=== PATIENT | female | born 1975 | race Hispanic/Latino ===

== ENCOUNTER 2018-11-04 06:23 | Day surgery (SDC) | payer MEDICAID ==
[2018-11-03 11:54] LABS: APPEARANCE,URINE Clear (CLEAR); BILIRUBIN,URINE Negative (NEGATIVE); COLOR,URINE Yellow (YELLOW); GLUCOSE, URINE (UA) >=1000 mg/dL (NEGATIVE); KETONES,URINE Negative (NEGATIVE); LEUKOCYTE ESTERASE ,URINE Negative (NEGATIVE); NITRATE,URINE Negative (NEGATIVE); OCCULT BLOOD,URINE Nonhemolyzed Trace (NEGATIVE); PH,URINE 5.5 (5.0-8.0); PROTEIN,URINE POS 2+ mg/dL (NEGATIVE)
[2018-11-03 12:05] VITALS: BP 138/78
[2018-11-03 12:09] LABS: ALBUMIN 2.7 g/dL (3.5-5.0); BILIRUBIN,TOTAL 0.3 mg/dL (0.2-1.0); CREATININE 0.7 mg/dL (0.5-1.5); POTASSIUM 3.9 mmol/L (3.5-5.1); TOTAL PROTEIN, SERUM 6.5 g/dL (6.0-8.3)
[2018-11-03 12:25] LABS: BACTERIA,URINE Rare /HPF (None Seen); SQUAMOUS EPITHELIAL CELL,UR Few /HPF (0-2); WBC,URINE 0-1 /HPF (0-1)
[2018-11-04] VITALS (14 sets, daily range): BP systolic 104–140; BP diastolic 41–74
[~2018-11-04] VITALS: Ht 156.2 cm; Wt 101.2 kg
[~2018-11-04 06:23] MED LIST: AMIT25TA9 PO; HYDR12.54 PO; INSU100V12 SQ; LOSA100T58 PO; PRAV40TA PO; TAMO20TA4 PO; TRAZADONE PO
[2018-11-04] MEDS ORDERED: SODIUM CHLORIDE 0.9% 1000ML 1,000 ML IV ONE (06:53)
--- NOTE | 2018-11-04 06:59 | NUR ---
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
[2018-11-04] MEDS ORDERED: LIDOCAINE PF 2% 5ML ABBOJECT ONE (07:04)
[2018-11-04] MEDS ORDERED: MIDAZOLAM HCL 1 MG/ML 2ML VIAL ONE (07:05)
[2018-11-04] MEDS ORDERED: PROPOFOL 10 MG/ML 20ML VIAL IV ONE (07:05)
[2018-11-04] MEDS ORDERED: FENTANYL CITRATE PF 50 MCG/1 ML 2ML VIAL ONE (07:05)
[2018-11-04] MEDS ORDERED: CLINDAMYCIN 900 MG/D5% WATER 50 ML IV ONE (07:18)
[2018-11-04] MEDS ORDERED: ONDANSETRON HCL 4 MG/2 ML VIAL ONE (08:10)
[2018-11-04] MEDS ORDERED: MEPERIDINE-PF 25 MG/ML SYG ONE (08:46)
[2018-11-04] MEDS ORDERED: KETOROLAC TROMETHAMINE 30MG/ML ONE (09:07)
--- NOTE | 2018-11-04 09:10 | NUR ---
NOTIFIED JUAN YORK C/O DISCOMFORT. NO NEW ORDERS THIS TIME, WILL CONTINUE TO MONITOR. Addendum: 11/04/18 at 0921 by RAMYA ALLISON RN RN Amended: Links added.
[2018-11-04] MEDS ORDERED: ACETAMINOPHEN 325 MG TAB ONE (09:55)
== END 2018-11-04 10:30 | disposition home or self-care (01) ==
LOC: DAH 06:23
DX: G56.02 Carpal tunnel syndrome, left upper limb (principal); M65.88 Other synovitis and tenosynovitis, other site; G43.909 Migraine, unspecified, not intractable, without status migrainosus; Z98.890 Other specified postprocedural states; I10 Essential (primary) hypertension; Z85.3 Personal history of malignant neoplasm of breast; E11.9 Type 2 diabetes mellitus without complications; E78.5 Hyperlipidemia, unspecified; Z98.51 Tubal ligation status; Z79.4 Long term (current) use of insulin; Z79.899 Other long term (current) drug therapy; Z88.8 Allergy status to other drugs, medicaments and biological substances; Z83.3 Family history of diabetes mellitus
CPT/HCPCS: 25115; 36415; 64721; 80053; 81001; 82948 ×3; 88304; A4649; A4930; A6223; A6446; J1885; J2001; J2175; J2250; J2405; J2704; J3010; J3490; J7030